=== PATIENT | female | born 2000 | race Hispanic/Latino ===

== ENCOUNTER 2023-09-30 15:34 | Emergency (ER) | payer OTHER, SELFPAY ==
[2023-09-30] MEDS ORDERED: Lidocaine 1% (PF) 30 ML VIAL ONE (16:54)
[2023-09-30] MEDS ORDERED: predniSONE 20 MG TAB ONE (16:55)
== END 2023-09-30 17:12 | disposition home or self-care (01) ==
LOC: CSHERS 15:34
DX: L03.90 Cellulitis, unspecified (principal); T63.441A Toxic effect of venom of bees, accidental (unintentional), initial encounter; J45.909 Unspecified asthma, uncomplicated; F17.290 Nicotine dependence, other tobacco product, uncomplicated
CPT/HCPCS: 10120; J2001; J7512